=== PATIENT | female | born 1985 | race American Indian/Alaskan Native ===

== ENCOUNTER 2020-09-14 10:14 | Inpatient (IN) | payer OTHER ==
[~2020-09-14] VITALS: Ht 165.1 cm; Wt 71.2 kg
[2020-09-14] MEDS ORDERED: PRENATAL CAPLE1 EAC1 (10:58)
== END 2020-09-16 13:43 | disposition home or self-care (01) | DRG 807 ==
LOC: OBS/DEL 10:14 → LDR 15:46 → SURG-SUITE 15:46 → OBS/DEL 15:46 → SURG-SUITE 20:43
PROVIDERS: ADMIT Obstetrics & Gynecology; ATTEND Obstetrics & Gynecology
PROC: 10E0XZZ Delivery of Products of Conception, External Approach (ICD-10-PCS; principal; 2020-09-14)
PROC: 0HQ9XZZ Repair Perineum Skin, External Approach (ICD-10-PCS; 2020-09-14)
PROC: 10907ZC Drainage of Amniotic Fluid, Therapeutic from Products of Conception, Via Natural or Artificial Opening (ICD-10-PCS; 2020-09-14)
PROC: 4A1HXFZ Monitoring of Products of Conception, Cardiac Rhythm, External Approach (ICD-10-PCS; 2020-09-14)
DX: O70.0 First degree perineal laceration during delivery (principal); Z37.0 Single live birth; Z3A.39 39 weeks gestation of pregnancy; Z20.822 Contact with and (suspected) exposure to COVID-19